=== PATIENT | female | born 1990 | race Two or more races ===

== ENCOUNTER 2022-11-07 22:44 | Inpatient (IN) | payer OTHER ==
[~2022-11-07] VITALS: Ht 165.1 cm; Wt 76.2 kg
[2022-11-07] MEDS ORDERED: PRENATAL TABLE1 EAC1 PO (22:56)
[2022-11-09] MEDS ORDERED: HYDROXYZINE PAM50 MG (11:18)
== END 2022-11-10 11:48 | disposition home or self-care (01) | DRG 807 ==
LOC: LDR 22:44 → OB/GYN 22:44
PROVIDERS: ADMIT Obstetrics & Gynecology; ATTEND Obstetrics & Gynecology
PROC: 10E0XZZ Delivery of Products of Conception, External Approach (ICD-10-PCS; principal; 2022-11-07)
PROC: 0HQ9XZZ Repair Perineum Skin, External Approach (ICD-10-PCS; 2022-11-07)
PROC: 4A1HXCZ Monitoring of Products of Conception, Cardiac Rate, External Approach (ICD-10-PCS; 2022-11-07)
DX: O70.0 First degree perineal laceration during delivery (principal); Z37.0 Single live birth; Z3A.39 39 weeks gestation of pregnancy; Z20.822 Contact with and (suspected) exposure to COVID-19